=== PATIENT | female | born 1980 | race Hispanic/Latino ===

== ENCOUNTER → 2018-06-07 | Day surgery (SDC) | payer OTHER ==
[2018-06-04 12:21] LABS: BASOPHILS % 0.5 % (0.0-1.0); EOSINOPHILS # (AUTO) 0.1 (0.0-0.4); EOSINOPHILS % 0.6 % (0.0-6.0); HEMOGLOBIN 13.1 g/dL (12.0-16.0); LYMPHOCYTES # (AUTO) 2.3 (1.0-3.2); LYMPHOCYTES % 28.3 % (18.0-39.1); MEAN CORPUSCULAR HEMOGLOBIN 26.4 pg (28-32); MEAN CORPUSCULAR VOLUME 82.5 fL (81-99); MONOCYTES # (AUTO) 0.4 (0.2-0.8); MONOCYTES % 5.3 % (4.4-11.3); NEUTROPHILS # (AUTO) 5.2 (2.1-6.9); NEUTROPHILS % 65.2 % (38.7-80.0); PLATELET COUNT 334 x10e3/uL (140-360); RED BLOOD COUNT 4.97 x10e6/uL (3.6-5.1); RED CELL DISTRIBUTION WIDTH 15.9 % (11.7-14.4)
--- NOTE | 2018-06-04 12:44 | Diagnostic Imaging Report ---
EXAMINATION: PA and lateral views of the chest. COMPARISON: None CLINICAL HISTORY: Preop DISCUSSION: Lines/tubes: None. Lungs: The lungs are well inflated and clear. There is no evidence of pneumonia or pulmonary edema. Pleura: There is no pleural effusion or pneumothorax. Heart and mediastinum: Cardiomediastinal silhouette is unremarkable. Pulmonary vasculature is normal. Bones and soft tissues: No acute bony abnormalities. IMPRESSION: No acute cardiopulmonary abnormalities. Signed by: Dr. Joe Chaney M.D. on 06/04/2018 12:40 PM
[2018-06-04 12:49] LABS: ANION GAP 15.7 mmol/L (8-16); BLOOD UREA NITROGEN 17 mg/dL (7-26); BUN/CREATININE RATIO 24 (6-25); CALCIUM 8.4 mg/dL (8.4-10.2); CARBON DIOXIDE 25 mmol/L (22-29); CHLORIDE 100 mmol/L (98-107); EST GLOMERULAR FILTRATION RATE > 60 ML/MIN (60-); GLUCOSE 90 mg/dL (74-118); POTASSIUM 3.7 mmol/L (3.5-5.1); SODIUM 137 mmol/L (136-145)
[~2018-06-07] MED LIST: BUPIVACAINE HCL 0.5% 10ML MPF VIAL INJ ONE; CEFAZOLIN SOD 2 GM/D5W 50ML 50 ML IV ONE; DEXAMETHASONE SOD PHOS INJ 4 MG/ML VIAL ONE; FENTANYL CITRATE/PF 100MCG/2 ML INJ ONE; KETOROLAC TROMETHAMINE 30 MG/ML VIAL ONE; LIDOCAINE HCL 2% LOCAL INJ 5 ML SDV VIAL INJ ONE; MIDAZOLAM HCL 2 MG/2 ML VIAL ONE; ONDANSETRON HCL INJ 2 MG/ML VIAL ONE; PROPOFOL IV EMULSION 10 MG/ML 20 ML VIAL ONE; SEVOFLURANE INHAL SOLN 250 ML PEN BTL ONE
--- OUTSIDE RECORDS SUMMARY | 2018-06-07 07:37 | XMS REPORT ---
Author Author [facility] Address Unknown Phone Unavailable Care Team Providers Care Eradicator Name Role Phone FREYA SADLER Unavailable Unavailable Problems This patient has no known problems. Allergies, Adverse Reactions, Alerts This patient has no known allergies or adverse reactions. Medications This patient has no known medications. Results Test Description Test Time Test Comments Text Results Atomic Results Result Comments CHEST 2 VIEWS 2018-06-04 12:40:00 [facility] [address], [place] [address] Patient Name: DYLON SMITH MR #: [id number] : 1980 Age/Sex: 38/F Req #: [id number] Adm Physician: Ordered by: FREYA SADLER DPM Report #: [id number] Location: OR Room/Bed: Procedure: [id number] DX/CHEST 2 VIEWS Exam Date: 06/04/18 Exam Time: 1225 REPORT STATUS: Signed EXAMINATION: PA and lateral views of the chest. COMP ARISON: None CLINICAL HISTORY: Preop DISCUSSION: Lines/tubes: None. Lungs: The lungs are well inflated and clear. There is no evidence of pneumonia or pulmonary edema. Pleura: There is no pleural effusion or pneumothorax. Heart and mediastinum: Cardiomediastinal silhouette is unremarkable. Pulmonary vasculature is normal. Bones and soft tissues: No acute bony abnormalities. IMPRESSION: No acute cardiopulmonary abnormalities. Signed by: Dr. Beata Chaney M.D. on 06/04/2018 12:40 PM Dictated By: BEATA CHANEY MD 39 Transcribed By: JOSSUE on 06/04/181239 COPY TO: FREYA SADLER DPM
[2018-06-07 13:00] VITALS: BP 136/90
--- NOTE | 2018-06-10 20:04 | Operative Report ---
DATE OF PROCEDURE: June 07, 2018 PREOPERATIVE DIAGNOSIS: Dorsally contracted rigid hammertoe 5th digit, right foot. Tailor's bunion, right foot. POSTOPERATIVE DIAGNOSIS: Dorsally contracted rigid hammertoe 5th digit, right foot. Tailor's bunion, right foot. TITLE OF OPERATION: 1. Arthrodesis 5th digit, right foot, with pinning. 2. Tailor's bunionectomy, right foot. 3. V to Y skin plasty with flap closure, right foot. ANESTHESIA: General endotracheal. HEMOSTASIS: Right thigh tourniquet 350 mmHg. PROCEDURE IN DETAIL: The patient was taken to the operating room in a mildly sedated state and placed upon the operating table in supine position. Following induction of general anesthetic, the right lower extremity was elevated to 60 degrees to exsanguinate before inflating the pneumatic thigh tourniquet to 350 mmHg for hemostasis. The right foot having been prepped and draped was placed upon the operating table prior for performing the following procedures: Procedure #1 is the arthroplasty, 5th digit, right foot. An approximately 3 cm dorsal incision made overlying the head of the proximal phalanx of 5th digit of the right foot. Incision was deepened via sharp and blunt dissection down to the level of dorsal capsular structure. Care was taken to identify and retract all vital structures encountered. Head of the proximal phalanx was resected utilizing oscillating saw. Attention was then directed to the contracted metatarsophalangeal joint and tailor's bunion area. An approximate 4 cm dorsal linear incision was made overlying the tailor's bunion of the right foot. Incision was deepened via sharp and blunt dissection down to the level of dorsal capsular structure. Care was taken to identify and retract all vital structures encountered. Head of the 5th metatarsal was brought into the surgical site and remodeled utilizing oscillating saw. The conjoined tendon of the attached musculature was elongated as well. The skin and extensor tendon were noted to be rigidly contracted overlying the metatarsophalangeal joint. A Z-plasty to the tendon was performed allowing a relaxation of the contracture and a V to Y skin plasty was performed with flap closure. The cut was arranged with a distally based V with dorsal extensions both dorsal laterally and dorsal medially overlying the 5th metatarsophalangeal joint. This area was then allowed to relax as the 5th digit was reapproximated at the end of the 5th metatarsal as apposed to the dorsally contracted position that it had been articulating in. The area was irrigated with copious amounts of sterile saline solution. Deep closure of subcutaneous tissue with 3-0 Vicryl. Tendon repair was 3-0 Vicryl. A 0.045 K-wire was used to retrograde 10 to 5th digit in the appropriate alignment with slight plantarflexion. The V to Y skin plasty thus having been performed was closed with simple interrupted sutures and closed in the form of a Y where it had been a V. This allowed for transferring width into length and allowing the toe to lay down comfortably without the dorsal contracture. The skin was closed on all remaining areas with simple interrupted sutures. Blocked with 0.5 Marcaine and Decadron LA. Human tissue allograft was used to facilitate closure of the flap and the closure was tolerated well. The appropriate mildly compressive dressings were applied. Released the pneumatic thigh tourniquet and showed a normal hyperemic flush to all digits of the right foot. Skin plasty was noted to be viable as was the distal aspect of 5th digit. The patient left the operating room with vital signs stable in apparent satisfactory condition having tolerating both the anesthetic and the procedure very well. Job#: [id number]
== END | disposition home or self-care (01) ==
LOC: OR 07:35
PROVIDERS: ATTEND Podiatrist Foot Surgery
DX: M20.41 Other hammer toe(s) (acquired), right foot (principal); M21.621 Bunionette of right foot; Z01.810 Encounter for preprocedural cardiovascular examination; Z01.812 Encounter for preprocedural laboratory examination; Z01.818 Encounter for other preprocedural examination
CPT/HCPCS: 28110; 28285; 36415; 71046; 80048; 84702; 85025; 93005; J0690; J1100; J1885; J2001; J2250; J2405; J2704; Q4100; 76001; C1713